=== PATIENT | female | born 1990 ===

== ENCOUNTER → 2020-08-10 | Outpatient (CLI) | payer MEDICAID ==
[~2020-08-10] MED LIST: IBU800 M1 PO; PERCOCET 325 MG1 TA2 PO; PRENATAL TABLET PO
== END | disposition still patient (30) ==
LOC: ZCOL.LAB
DX: Z20.828 Contact with and (suspected) exposure to other viral communicable diseases (principal)

== ENCOUNTER 2020-08-14 05:21 | Inpatient (IN) | payer MEDICAID ==
[2020-08-14] VITALS (18 sets, daily range): BP systolic 105–134; BP diastolic 58–81; PULSE 77–116; TEMP 97.2–98.7
[~2020-08-14] VITALS: Ht 152.4 cm; Wt 65.9 kg
--- NOTE | 2020-08-14 05:30 | NUR ---
Pt arrived on unit ambulatory for scheduled repeat . Pt reports occasional contractions, denies any leaking of fluid or vaginal bleeding and reports normal movement. EFM started and vital signs WNL. Plan of care reviewed with pt.
[2020-08-14 06:23] LABS: BASO % 0.4 % (0.0-2.0); EOS # 0.1 (0.0-0.7); EOS % 1.2 % (0-4.0); GRAN # 8.2 (1.4-6.5); GRAN % 74.7 % (42.2-75.2); HEMATOCRIT 36.3 % (37.0-47.0); HEMOGLOBIN 12.6 g/dl (12.5-16.0); LYMPH # 1.5 (1.2-3.4); MEAN CELL VOLUME 76 fl (80.0-100.0); MEAN CORPUSCULAR HEMOGLOBIN 26 pg (27.0-31.0); MEAN CORPUSCULAR HGB CONC 35 g/dl (33.0-37.0); MEAN PLATELET VOLUME 11.6 fl (7.4-10.4); MONO # 0.9 (0.1-0.6); MONO % 8.4 % (1.7-9.3); PLATELET COUNT 241 K/mm3 (130-400); RED BLOOD COUNT 4.77 M/mm3 (4.10-5.30); REDCELL DISTRIBUTION WIDTH-CV 15.6 % (11.5-14.5)
[2020-08-14] MEDS ORDERED: PRENATAL TABLET PO (06:35)
--- NOTE | 2020-08-14 09:45 | NUR ---
Pt to room 213 from PACU, rolled with assist and pad changed. Pt with incisional pain 8/10, given crackers and juice.
--- NOTE | 2020-08-14 10:35 | NUR ---
Pt tolerated the crackers and juice well, Percocet given per orders. VSS.
--- NOTE | 2020-08-15 09:25 | NUR ---
Initial visit attempt; Nurse with patient, Pipe Changer left card of congratulations and God's blessings and information regarding the availability of spiritual care at our hospital.
[2020-08-15 16:10] VITALS: BP 110/64; PULSE 97; TEMP 98
--- NOTE | 2020-08-15 16:10 | NUR ---
INCISION SITE CONTINUES TO OOZE BLOOD A SMALL AMOUNT. LEAVING TELFA PAD IN PLACE
[2020-08-15 20:24] VITALS: BP 121/75; PULSE 95; TEMP 98.1
[2020-08-16] MEDS ORDERED: IBU800 M1 PO (07:15)
[2020-08-16] MEDS ORDERED: PERCOCET 325 MG1 TA2 PO (07:16)
[2020-08-16 08:46] VITALS: BP 122/67; PULSE 70; TEMP 98.6
== END 2020-08-16 13:00 | disposition home or self-care (01) | DRG 788 ==
LOC: OB 05:21
PROVIDERS: ADMIT Student in an Organized Health Care Education/Training Program
PROC: 10D00Z1 Extraction of Products of Conception, Low, Open Approach (ICD-10-PCS; principal; 2020-08-14)
DX: O34.211 Maternal care for low transverse scar from previous cesarean delivery (principal); O99.52 Diseases of the respiratory system complicating childbirth; O99.62 Diseases of the digestive system complicating childbirth; J45.909 Unspecified asthma, uncomplicated; K21.9 Gastro-esophageal reflux disease without esophagitis; O26.893 Other specified pregnancy related conditions, third trimester; Z3A.39 39 weeks gestation of pregnancy; Z67.41 Type O blood, Rh negative; Z37.0 Single live birth
CPT/HCPCS: J0690; J1885; J2370; J2405; J2590; J2791; J3010; J7120